=== PATIENT | male | born 1970 | race Hispanic/Latino ===

== ENCOUNTER 2018-04-28 10:35 | Day surgery (SDC) | payer SELFPAY ==
[2018-04-24 14:51] LABS: BASOPHILS % (AUTO) 0.5 % (0.0-5.0); EOSINOPHILS % (AUTO) 1.4 % (0.0-8.0); HEMATOCRIT 44.8 % (42-54); LYMPHOCYTES % (AUTO) 26.7 % (21.0-51.0); MEAN CORPUSCULAR HEMOGLOBIN 31.6 pg (27.0-33.0); MEAN CORPUSCULAR HGB CONC 34.2 g/dL (32.0-36.0); MEAN CORPUSCULAR VOLUME 92.3 fL (79-99); MONOCYTES % (AUTO) 8.4 % (3.0-13.0); PLATELET COUNT (AUTO) 168 K/uL (130-400); RED BLOOD CELL COUNT(AUTO) 4.86 MIL/uL (4.50-6.20); RED CELL DISTRIBUTION WIDTH 12.7 % (11.0-15.5); WHITE BLOOD COUNT (AUTO) 7.7 K/uL (4.8-10.8)
[2018-04-24 15:12] VITALS: BP 136/69
[2018-04-24 15:13] LABS: APPEARANCE,URINE Clear (CLEAR); BILIRUBIN,URINE Negative (NEGATIVE); COLOR,URINE Yellow (YELLOW); GLUCOSE, URINE (UA) Negative (NEGATIVE); KETONES,URINE Negative (NEGATIVE); LEUKOCYTE ESTERASE ,URINE Negative (NEGATIVE); NITRATE,URINE Negative (NEGATIVE); OCCULT BLOOD,URINE Negative (NEGATIVE); PROTEIN,URINE Negative (NEGATIVE)
--- NOTE | 2018-04-24 15:30 | NUR ---
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
[~2018-04-28] VITALS: Ht 162.6 cm; Wt 101.5 kg
[2018-04-28] VITALS (16 sets, daily range): BP systolic 112–139; BP diastolic 60–96
[~2018-04-28 10:35] MED LIST: LACTATED RINGERS 1000ML 1,000 ML IV SCH
[2018-04-28] MEDS ORDERED: MIDAZOLAM HCL 1 MG/ML 2ML VIAL ONE (12:42)
[2018-04-28] MEDS ORDERED: SUCCINYLCHOLINE 200MG/10ML SYR ONE (12:42)
[2018-04-28] MEDS ORDERED: LIDOCAINE PF 2% 5ML ABBOJECT ONE ×3 (12:42→13:35)
[2018-04-28] MEDS ORDERED: DEXAMETHASONE SOD PHOSPHATE 10MG/ML 1ML VIAL ONE (12:42)
[2018-04-28] MEDS ORDERED: NEOSTIGMINE 5MG/5ML SYR IV ONE (12:43)
[2018-04-28] MEDS ORDERED: PROPOFOL 10 MG/ML 20ML VIAL IV ONE (12:43)
[2018-04-28] MEDS ORDERED: GLYCOPYRROLATE 1 MG/5 ML SYRINGE ONE (12:43)
[2018-04-28] MEDS ORDERED: ROCURONIUM 10MG/1ML SYR 10 MG/ML ML ONE (12:43)
[2018-04-28] MEDS ORDERED: FENTANYL CITRATE PF 50 MCG/1 ML 2ML VIAL ONE ×2 (12:43→13:12)
[2018-04-28] MEDS ORDERED: ONDANSETRON HCL 4 MG/2 ML VIAL ONE (12:43)
[2018-04-28] MEDS ORDERED: BUPIVACAINE/PF 0.25% 30ML VIAL IJ ONE (12:43)
[2018-04-28] MEDS ORDERED: LIDOCAINE HCL 2% JELLY 5 ML ONE (13:33)
[2018-04-28] MEDS ORDERED: LIDOCAINE HCL 4% LTA SOL 4 ML VIAL ONE (13:33)
[2018-04-28] MEDS ORDERED: MEPERIDINE-PF 25 MG/ML SYG ONE (15:18)
[2018-04-28] MEDS ORDERED: KETOROLAC TROMETHAMINE 30MG/ML ONE (15:24)
== END 2018-04-28 17:00 | disposition home or self-care (01) ==
LOC: DAH 10:35 → EDSEX 13:00 → DAH 17:00
PROVIDERS: ATTEND Surgery
DX: K43.6 Other and unspecified ventral hernia with obstruction, without gangrene (principal); E66.01 Morbid (severe) obesity due to excess calories
CPT/HCPCS: 36415; 49561; 49568; 81003; 85025; 88302; A4450; A4452; A4606; A4930; C1781; J0330; J1100; J1885; J2001 ×3; J2175; J2250; J2405; J2704; J2710; J3010 ×2; J3490 ×2; J7120

== ENCOUNTER 2018-05-08 19:08 | Inpatient (IN) | payer OTHER, SELFPAY ==
[2018-05-08 21:24] LABS: BASOPHILS % (AUTO) 0.2 % (0.0-5.0); EOSINOPHILS % (AUTO) 0.4 % (0.0-8.0); HEMATOCRIT 40.8 % (42-54); LYMPHOCYTES % (AUTO) 11.8 % (21.0-51.0); MEAN CORPUSCULAR HEMOGLOBIN 31.5 pg (27.0-33.0); MEAN CORPUSCULAR HGB CONC 34.6 g/dL (32.0-36.0); MEAN CORPUSCULAR VOLUME 90.9 fL (79-99); MONOCYTES % (AUTO) 6.8 % (3.0-13.0); NEUTROPHILS % (AUTO) 80.8 % (40.0-77.0); PLATELET COUNT (AUTO) 241 K/uL (130-400); RED BLOOD CELL COUNT(AUTO) 4.49 MIL/uL (4.50-6.20); RED CELL DISTRIBUTION WIDTH 12.1 % (11.0-15.5); WHITE BLOOD COUNT (AUTO) 12.5 K/uL (4.8-10.8)
[2018-05-08 21:35] LABS: CREATININE 0.8 mg/dL (0.5-1.5); POTASSIUM 4.6 mmol/L (3.5-5.1)
[2018-05-08 21:42] LABS: ALBUMIN 3.5 g/dL (3.5-5.0); BILIRUBIN,TOTAL 0.9 mg/dL (0.2-1.0); TOTAL PROTEIN, SERUM 7.9 g/dL (6.0-8.3)
[2018-05-08] MEDS ORDERED: IOHEXOL-350 75 ML VIAL IV ONE (21:43)
[2018-05-08] MEDS ORDERED: VANCOMYCIN 1GM+NS 250ML 250 ML IV ONE (22:27)
[2018-05-09] MEDS ORDERED: LACTATED RINGERS 1000ML 1,000 ML IV ONE (00:50)
[2018-05-09] MEDS ORDERED: ZOSYN 3.375GM+NS 50ML 50 ML IV ONE ×3 (01:12→16:31)
[2018-05-09 04:18] LABS: APPEARANCE,URINE Clear (CLEAR); BILIRUBIN,URINE Negative (NEGATIVE); COLOR,URINE Yellow (YELLOW); GLUCOSE, URINE (UA) Negative (NEGATIVE); KETONES,URINE Negative (NEGATIVE); LEUKOCYTE ESTERASE ,URINE Negative (NEGATIVE); NITRATE,URINE Negative (NEGATIVE); OCCULT BLOOD,URINE Negative (NEGATIVE); PH,URINE 5.5 (5.0-8.0); PROTEIN,URINE Negative (NEGATIVE); UROBILINOGEN,URINE 0.2 mg/dL (0.2-1.0)
[2018-05-09 05:45] LABS: BASOPHILS % (AUTO) 0.4 % (0.0-5.0); EOSINOPHILS % (AUTO) 0.2 % (0.0-8.0); HEMATOCRIT 35.7 % (42-54); LYMPHOCYTES % (AUTO) 18.4 % (21.0-51.0); MEAN CORPUSCULAR HEMOGLOBIN 31.6 pg (27.0-33.0); MEAN CORPUSCULAR HGB CONC 34.8 g/dL (32.0-36.0); MONOCYTES % (AUTO) 7.6 % (3.0-13.0); NEUTROPHILS % (AUTO) 73.4 % (40.0-77.0); PLATELET COUNT (AUTO) 218 K/uL (130-400); RED BLOOD CELL COUNT(AUTO) 3.92 MIL/uL (4.50-6.20); RED CELL DISTRIBUTION WIDTH 11.9 % (11.0-15.5); WHITE BLOOD COUNT (AUTO) 13.5 K/uL (4.8-10.8)
[2018-05-09 05:52] LABS: CREATININE 0.8 mg/dL (0.5-1.5); POTASSIUM 3.9 mmol/L (3.5-5.1)
[2018-05-09] MEDS ORDERED: MORPHINE SULFATE 2 MG/ML 1ML SYG IVP PRN (06:15)
[2018-05-09] MEDS ORDERED: ONDANSETRON HCL 4 MG/2 ML VIAL IVP PRN (06:15)
[2018-05-09] MEDS: ZOSYN 3.375GM+NS 50ML 50 ML IV SCH ×3 (07:00→22:39)
[2018-05-09] MEDS ORDERED: ACET1TAB25 PO (11:09)
--- NOTE | 2018-05-09 11:13 | NUR ---
states he has been urinating every 2 hours since he had surgery on 04-28-18 for umbilical hernia repair Addendum: 05/09/18 at 1123 by CJ RAMIREZ RN RN Amended: Links added.
--- NOTE | 2018-05-09 15:24 | NUR ---
D/C PLAN KATHIA spoke to pt regarding d/c planning. pt is ind. and lives with spouse. states spouse can assist in care as needed. CM provided pt with community resources packet. Plan to home. CM to f/u Addendum: 05/09/18 at 1525 by TISH WASHINGTON CM Amended: Links added.
[2018-05-09 16:00] VITALS: BP 118/70
--- NOTE | 2018-05-09 16:48 | NUR ---
ER ADMIT PATIENT RECEIVED FROM ER VIA WHEELCHAIR IN STABLE CONDITION. HE HAS BEEN ORIENTED TO ROOM AND USE OF CALL LIGHT. CARE PLAN DISCUSSED. BED IS IN LOWEST POSITION AND LOCKED WITH PERSONAL BELONGINGS WITHIN REACH. IV TO LEFT AC IS PATENT INFUSING FLUIDS WITH NO REDNESS OR SWELLING NOTED TO SITE. DRESSING TO ABDOMEN IS SOILED AND WILL BE CHANGED.
[2018-05-09] MEDS: LACTATED RINGERS 1000ML 1,000 ML IV SCH (17:00)
[2018-05-09 19:00] VITALS: BP 152/73
[2018-05-09 23:00] VITALS: BP 125/73
[2018-05-10 03:00] VITALS: BP 107/68
[2018-05-10] MEDS: ZOSYN 3.375GM+NS 50ML 50 ML IV SCH ×3 (06:35→22:44)
[2018-05-10] MEDS: LACTATED RINGERS 1000ML 1,000 ML IV SCH ×2 (07:31→22:44)
[2018-05-10 08:00] VITALS: BP 119/53
[2018-05-10 12:00] VITALS: BP 119/53
[2018-05-10 13:42] LABS: HEMATOCRIT 39.2 % (42-54); MEAN CORPUSCULAR HEMOGLOBIN 31.5 pg (27.0-33.0); MEAN CORPUSCULAR HGB CONC 34.5 g/dL (32.0-36.0); MEAN CORPUSCULAR VOLUME 91.5 fL (79-99); PLATELET COUNT (AUTO) 276 K/uL (130-400); RED BLOOD CELL COUNT(AUTO) 4.29 MIL/uL (4.50-6.20); RED CELL DISTRIBUTION WIDTH 12.3 % (11.0-15.5); WHITE BLOOD COUNT (AUTO) 8.6 K/uL (4.8-10.8)
[2018-05-10 13:44] LABS: CREATININE 0.9 mg/dL (0.5-1.5); POTASSIUM 3.8 mmol/L (3.5-5.1)
--- NOTE | 2018-05-10 15:48 | NUR ---
DRESSING CHANGES DONE , PATIENT DENIES PAIN AT THIS TIME
[2018-05-10 16:00] VITALS: BP 111/76
[2018-05-10 19:00] VITALS: BP 118/97
[2018-05-10 23:00] VITALS: BP 147/83
[2018-05-11 03:00] VITALS: BP 149/70
[2018-05-11] MEDS: ZOSYN 3.375GM+NS 50ML 50 ML IV SCH (06:03)
[2018-05-11 08:00] VITALS: BP 102/52
--- NOTE | 2018-05-11 09:45 | NUR ---
DR. CHOPRA IN TO SEE PT. ORDERS ENTERED. ZOSYN STOPPED AND STARTED ON CLINDAMYCIN. AT THIS TIME ALSO CHANGED DRESSING TO ABD. WOUND. PURULENT DRAINAGE PRESENT AND DR. CHOPRA AWARE.
[2018-05-11] MEDS ORDERED: CLINDAMYCIN 600 MG/D5% WATER 0 ML IV ONE (09:59)
--- NOTE | 2018-05-11 10:00 | NUR ---
WALKING IN HALLWAY WITH SPOUSE AT BEDSIDE. DENIES PAIN AT THIS TIME.
[2018-05-11] MEDS: CLINDAMYCIN 300 MG/D5W 50 ML 50 ML IV SCH ×3 (10:27→21:23)
[2018-05-11] MEDS ORDERED: CLINDAMYCIN 600 MG/D5% WATER 50 ML IV ONE (10:31)
[2018-05-11] MEDS ORDERED: CLINDAMYCIN 600 MG/D5% WATER 50 ML IV SCH (11:15)
[2018-05-11 12:00] VITALS: BP 147/80
--- NOTE | 2018-05-11 14:00 | NUR ---
ABD. DRESSING CHANGED, PURULENT DRAINAGE OOZING AND WHEN PRESS AROUND WOUND DRAINS FREELY. STATES IT DOES NOT HURT.
[2018-05-11 16:00] VITALS: BP 121/76
[2018-05-11] MEDS: LACTATED RINGERS 1000ML 1,000 ML IV SCH (17:23)
[2018-05-11 20:00] VITALS: BP 121/70
[2018-05-12] VITALS: BP 102/49
[2018-05-12] MEDS: CLINDAMYCIN 300 MG/D5W 50 ML 50 ML IV SCH (03:45)
[2018-05-12 04:00] VITALS: BP 106/47
[2018-05-12] MEDS: LACTATED RINGERS 1000ML 1,000 ML IV SCH (04:08)
[2018-05-12 08:00] VITALS: BP 144/80
--- NOTE | 2018-05-12 09:30 | NUR ---
DRESSING TO ABD WOUND CHANGED,DRAINING LESS TODAY. DENIES PAIN.
[2018-05-12] MEDS ORDERED: CLIN300C9 PO (10:46)
--- NOTE | 2018-05-12 11:23 | NUR ---
IN TO SEE PT. LEFT DISCHARGED ORDERS. WILL SEE HIM IN OFFICE TOMORROW.LEFT RX. FOR CLINDAMYCIN AND [facility] OFFICE IN AM.
[2018-05-12 12:00] VITALS: BP 130/75
--- NOTE | 2018-05-12 13:00 | NUR ---
DISCHARGED NOW USING TEACH BACK. RX. IN HAND FOR CLINDAMYCIN PLUS APPT TO FOLLOW UP WITH DR. CHOPRA. INST. ON WOUND CARE GIVEN TO SPOUSE. UNDERSTANDING VERBALIZED ON ALL INST. GIVEN.
== END 2018-05-12 13:11 | disposition home or self-care (01) | DRG 863 ==
LOC: EDH 19:08 → OBSVTOIN 19:09 → EDHIP 19:09 → 3AH 05-09 16:52 → 3BH 05-10 20:52
PROVIDERS: ADMIT Surgery; ATTEND Surgery
DX: T81.49XA Infection following a procedure, other surgical site, initial encounter (principal); B95.62 Methicillin resistant Staphylococcus aureus infection as the cause of diseases classified elsewhere; Y83.8 Other surgical procedures as the cause of abnormal reaction of the patient, or of later complication, without mention of misadventure at the time of the procedure; Y92.89 Other specified places as the place of occurrence of the external cause
CPT/HCPCS: 36415; 74177; 80048; 80053; 81003; 83605; 85025; 85027; 87070; 87076; 87077; 87186; G0378; J2543; J3370; J3490; J7120; Q9967

== ENCOUNTER 2019-04-10 10:06 | Inpatient (IN) | payer OTHER, SELFPAY ==
[~2019-04-10] VITALS: Ht 165.1 cm; Wt 99.4 kg
[~2019-04-10 10:06] MED LIST changes: +ACET1TAB25 PO; +CLIN300C9 PO; -LACTATED RINGERS 1000ML 1,000 ML IV SCH
[2019-04-10] MEDS ORDERED: KETOROLAC TROMETHAMINE 30MG/ML ONE (10:29)
[2019-04-10] MEDS ORDERED: SODIUM CHLORIDE 0.9% 1000ML 1,000 ML IV ONE ×2 (10:30→11:59)
[2019-04-10 10:36] LABS: BASOPHILS % (AUTO) 0.4 % (0.0-5.0); EOSINOPHILS % (AUTO) 0.4 % (0.0-8.0); HEMATOCRIT 40.4 % (42-54); LYMPHOCYTES % (AUTO) 19.8 % (21.0-51.0); MEAN CORPUSCULAR HEMOGLOBIN 30.5 pg (27.0-33.0); MEAN CORPUSCULAR HGB CONC 34.4 g/dL (32.0-36.0); MEAN CORPUSCULAR VOLUME 88.6 fL (79-99); MONOCYTES % (AUTO) 6.4 % (3.0-13.0); NEUTROPHILS % (AUTO) 72.9 % (40.0-77.0); PLATELET COUNT (AUTO) 230 K/uL (130-400); RED BLOOD CELL COUNT(AUTO) 4.56 MIL/uL (4.50-6.20); RED CELL DISTRIBUTION WIDTH 11.8 % (11.0-15.5); WHITE BLOOD COUNT (AUTO) 7.8 K/uL (4.8-10.8)
[2019-04-10 10:46] LABS: POTASSIUM 4.1 mmol/L (3.5-5.1)
[2019-04-10 10:48] LABS: INR 0.97 (0.85-1.15); PARTIAL THROMBOPLASTIN TIME 29.3 SEC (26.3-35.5); PROTHROMBIN TIME 10.2 SEC (9.6-11.6)
[2019-04-10 10:51] LABS: ALBUMIN 3.9 g/dL (3.5-5.0); BILIRUBIN,TOTAL 1.2 mg/dL (0.2-1.0); TOTAL PROTEIN, SERUM 7.8 g/dL (6.0-8.3)
[2019-04-10] MEDS ORDERED: VANCOMYCIN 1GM+NS 250ML 250 ML IV ONE (11:59)
[2019-04-10] MEDS ORDERED: IOHEXOL-350 75 ML VIAL IV ONE (12:42)
[2019-04-10] MEDS ORDERED: ONDANSETRON HCL 4 MG/2 ML VIAL IV PRN (15:45)
[2019-04-10] MEDS ORDERED: MORPHINE SULFATE 2 MG/ML 1ML SYG IV PRN (15:45)
[2019-04-10] MEDS ORDERED: ACETAMINOPHEN 325 MG TAB PO PRN ×2 (15:45)
[2019-04-10 16:27] LABS: ALBUMIN 3.3 g/dL (3.5-5.0); BILIRUBIN,TOTAL 1.2 mg/dL (0.2-1.0); CREATININE 0.8 mg/dL (0.5-1.5); POTASSIUM 3.6 mmol/L (3.5-5.1); TOTAL PROTEIN, SERUM 6.9 g/dL (6.0-8.3)
--- NOTE | 2019-04-10 17:30 | NUR ---
Rec'd to floor via bed after report from Dawn RN- pt. a/ox 4, skin warm and dry with orly umbilical redness along healed incision line. Resp even and unlabored, abdomen round, firm. UAL and self care, no acute complaints at this time.
[2019-04-10 17:46] VITALS: BP 131/74
--- NOTE | 2019-04-10 18:09 | NUR ---
Consult by Dr. Dubose completed; no orders at this time.
[2019-04-10 20:02] VITALS: BP 131/71
[2019-04-10] MEDS: CLINDAMYCIN 600 MG/D5% WATER 50 ML IV SCH ×2 (21:57→23:38)
[2019-04-10] MEDS: SODIUM CHLORIDE 0.9% 1000ML 1,000 ML IV SCH (21:58)
[2019-04-10 23:55] VITALS: BP 122/72
[2019-04-11 04:34] VITALS: BP 116/76
[2019-04-11 05:53] LABS: BASOPHILS % (AUTO) 0.3 % (0.0-5.0); EOSINOPHILS % (AUTO) 2.8 % (0.0-8.0); HEMATOCRIT 38.5 % (42-54); LYMPHOCYTES % (AUTO) 34.2 % (21.0-51.0); MEAN CORPUSCULAR HEMOGLOBIN 30.5 pg (27.0-33.0); MEAN CORPUSCULAR HGB CONC 34.3 g/dL (32.0-36.0); MEAN CORPUSCULAR VOLUME 88.9 fL (79-99); MONOCYTES % (AUTO) 10.9 % (3.0-13.0); NEUTROPHILS % (AUTO) 51.5 % (40.0-77.0); PLATELET COUNT (AUTO) 211 K/uL (130-400); RED BLOOD CELL COUNT(AUTO) 4.33 MIL/uL (4.50-6.20); RED CELL DISTRIBUTION WIDTH 11.7 % (11.0-15.5); WHITE BLOOD COUNT (AUTO) 6.2 K/uL (4.8-10.8)
[2019-04-11 08:07] VITALS: BP 121/68
[2019-04-11] MEDS: SODIUM CHLORIDE 0.9% 1000ML 1,000 ML IV SCH ×2 (09:22→22:23)
[2019-04-11] MEDS: CLINDAMYCIN 600 MG/D5% WATER 50 ML IV SCH ×3 (09:22→22:23)
[2019-04-11 11:44] VITALS: BP 105/59
--- NOTE | 2019-04-11 13:23 | NUR ---
INITIAL Patient lives with spouse, Maggie Torres, [phone] and their 17 year old son and 20 year old daughter. No home services or DME. Patient is independent and drives. 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 No PCP. Pharmacy is [facility] in [place]. DCP is home. Patient has no insurance or benefits. He is a [place] citizen and has worked in the [place]. Patient was provided with community resources for post hospitalization follow up. Patient was also provided with Good RX card for prescriptions and educated on [facility] $4 medication program and [facility] $5 medication program. Patient is being assisted by [employer] for financial matters. Addendum: 04/11/19 at 1326 by REINALDO ROLLINS SS Amended: Links added.
[2019-04-11 16:33] VITALS: BP 119/80
[2019-04-11 20:00] VITALS: BP 138/79
[2019-04-12] VITALS: BP 126/83
[2019-04-12 03:58] VITALS: BP 123/71
[2019-04-12 05:34] LABS: BASOPHILS % (AUTO) 0.5 % (0.0-5.0); EOSINOPHILS % (AUTO) 4.2 % (0.0-8.0); HEMATOCRIT 39.8 % (42-54); LYMPHOCYTES % (AUTO) 40.3 % (21.0-51.0); MEAN CORPUSCULAR HEMOGLOBIN 30.5 pg (27.0-33.0); MEAN CORPUSCULAR HGB CONC 34.4 g/dL (32.0-36.0); MEAN CORPUSCULAR VOLUME 88.6 fL (79-99); MONOCYTES % (AUTO) 12.9 % (3.0-13.0); NEUTROPHILS % (AUTO) 41.7 % (40.0-77.0); PLATELET COUNT (AUTO) 221 K/uL (130-400); RED BLOOD CELL COUNT(AUTO) 4.49 MIL/uL (4.50-6.20); RED CELL DISTRIBUTION WIDTH 11.9 % (11.0-15.5); WHITE BLOOD COUNT (AUTO) 5.7 K/uL (4.8-10.8)
[2019-04-12 05:59] LABS: ALBUMIN 3.2 g/dL (3.5-5.0); BILIRUBIN,TOTAL 0.4 mg/dL (0.2-1.0); CRP QUANTITATIVE 20.4 mg/L (0.00-9.0); POTASSIUM 4.2 mmol/L (3.5-5.1); TOTAL PROTEIN, SERUM 6.9 g/dL (6.0-8.3)
[2019-04-12 08:00] VITALS: BP 135/77
[2019-04-12] MEDS: CLINDAMYCIN 600 MG/D5% WATER 50 ML IV SCH ×2 (08:15→17:53)
[2019-04-12] MEDS: SODIUM CHLORIDE 0.9% 1000ML 1,000 ML IV SCH ×2 (08:17→17:54)
[2019-04-12] MEDS ORDERED: LIDOCAINE HCL MPF 1% 5ML VIAL ONE (09:51)
--- NOTE | 2019-04-12 10:20 | NUR ---
DR. GONZALEZ DID THE BEDSIDE INCISION AND DRAINAGE TO HIS MID ABD WOUND, AND PREP MEDICATION OF MORPHINE 2 MG IV GIVEN FOR PAIN , . PACKED WITH THE 1/4 IODOFORM GAUZE , AND APPLY ON TOP OF THE WOUND STERILE GAUZE AND A ABD PAD AND SECURE WITH TAPE TOLERATE WELL. EDUCATION PROVIDE TO AT THE BEDSIDE,
[2019-04-12 12:00] VITALS: BP 107/81
[2019-04-12 15:35] VITALS: BP 136/77
--- NOTE | 2019-04-12 15:50 | NUR ---
[facility] consult Patient has been seen by Dr. Dubose and I&D was performed. Wound care orders submitted by Dr. Dubose. No [facility] recommendations required at this time. May reconsult as needed.
[2019-04-12 19:55] VITALS: BP 126/72
[2019-04-13] MEDS: CLINDAMYCIN 600 MG/D5% WATER 50 ML IV SCH ×4 (00:09→23:44)
[2019-04-13 00:52] VITALS: BP 108/65
[2019-04-13] MEDS: SODIUM CHLORIDE 0.9% 1000ML 1,000 ML IV SCH ×2 (02:50→14:06)
[2019-04-13 04:07] VITALS: BP 119/63
[2019-04-13 05:37] LABS: BASOPHILS % (AUTO) 0.5 % (0.0-5.0); EOSINOPHILS % (AUTO) 4.5 % (0.0-8.0); LYMPHOCYTES % (AUTO) 39.6 % (21.0-51.0); MEAN CORPUSCULAR HEMOGLOBIN 30.2 pg (27.0-33.0); MEAN CORPUSCULAR HGB CONC 34.3 g/dL (32.0-36.0); MEAN CORPUSCULAR VOLUME 88.3 fL (79-99); MONOCYTES % (AUTO) 10.3 % (3.0-13.0); NEUTROPHILS % (AUTO) 44.9 % (40.0-77.0); PLATELET COUNT (AUTO) 233 K/uL (130-400); RED BLOOD CELL COUNT(AUTO) 4.53 MIL/uL (4.50-6.20); RED CELL DISTRIBUTION WIDTH 11.8 % (11.0-15.5); WHITE BLOOD COUNT (AUTO) 5.5 K/uL (4.8-10.8)
[2019-04-13 06:01] LABS: ALBUMIN 3.2 g/dL (3.5-5.0); BILIRUBIN,TOTAL 0.4 mg/dL (0.2-1.0); CREATININE 0.9 mg/dL (0.5-1.5); CRP QUANTITATIVE 11.6 mg/L (0.00-9.0); POTASSIUM 3.7 mmol/L (3.5-5.1); TOTAL PROTEIN, SERUM 6.7 g/dL (6.0-8.3)
[2019-04-13 08:00] VITALS: BP 90/48
[2019-04-13 12:00] VITALS: BP 125/80
[2019-04-13 16:00] VITALS: BP 132/56
[2019-04-13 21:24] VITALS: BP 122/70
[2019-04-14 00:50] VITALS: BP 96/65
[2019-04-14 04:16] VITALS: BP 125/71
[2019-04-14 05:26] LABS: BASOPHILS % (AUTO) 0.6 % (0.0-5.0); EOSINOPHILS % (AUTO) 3.7 % (0.0-8.0); HEMATOCRIT 40.5 % (42-54); LYMPHOCYTES % (AUTO) 38.7 % (21.0-51.0); MEAN CORPUSCULAR HEMOGLOBIN 30.1 pg (27.0-33.0); MEAN CORPUSCULAR HGB CONC 34.1 g/dL (32.0-36.0); MEAN CORPUSCULAR VOLUME 88.4 fL (79-99); MONOCYTES % (AUTO) 9.9 % (3.0-13.0); NEUTROPHILS % (AUTO) 46.8 % (40.0-77.0); PLATELET COUNT (AUTO) 223 K/uL (130-400); RED BLOOD CELL COUNT(AUTO) 4.58 MIL/uL (4.50-6.20); RED CELL DISTRIBUTION WIDTH 11.8 % (11.0-15.5); WHITE BLOOD COUNT (AUTO) 6.8 K/uL (4.8-10.8)
[2019-04-14 05:54] LABS: ALBUMIN 3.2 g/dL (3.5-5.0); BILIRUBIN,TOTAL 0.4 mg/dL (0.2-1.0); CRP QUANTITATIVE 5.4 mg/L (0.00-9.0); POTASSIUM 3.9 mmol/L (3.5-5.1); TOTAL PROTEIN, SERUM 6.6 g/dL (6.0-8.3)
[2019-04-14 08:00] VITALS: BP 116/78
[2019-04-14] MEDS: SODIUM CHLORIDE 0.9% 1000ML 1,000 ML IV SCH ×2 (09:43→23:50)
[2019-04-14] MEDS: CLINDAMYCIN 600 MG/D5% WATER 50 ML IV SCH ×3 (11:43→23:50)
[2019-04-14 12:00] VITALS: BP 135/87
--- NOTE | 2019-04-14 13:00 | NUR ---
DRESSING CHANGE/ TEACHING PERFORMED ABDOMINAL DRESSING CHANGE WITH PATIENTS PRESENT. PATIENTS STATES SHE WOULD BE ABLE TO PERFORM DRESSING CHANGES IF NEEDED. I ASKED PATIENTS I COULD TEACH HER HOW TO PERFORM ABDOMINAL WOUND DRESSING CHANGES AND PATIENTS AGREED. I ASKED IF SHE WANTED TO PERFORM THE DRESSING CHANGE NOW AND I WOULD INSTRUCT HER AND PATIENTS STATED "NO, I WANT TO JUST WATCH YOU DO THE DRESSING CHANGE FIRST." PERFORMED ABDOMINAL WOUND GAUZE PACKING DRESSING CHANGE. ABDOMINAL WOUND BED PINK AND BEEFY RED, MINIMAL SEROSANGUINEOUS DRAINAGE NOTED. CLEANSED WITH NS, AND PATTED DRY. APPLIED WOUND PACKING, COVERED WITH 4X4 GAUZE AND SECURED WITH MEDIPORE TAPE. I WAS VERBALLY INSTRUCTING PATIENT AND STEP BY STEP. I ASKED PATIENTS IF SHE THINKS SHE COULD PERFORM DRESSING CHANGE NEXT TIME FOR PRACTICE AND PATIENTS REPLIED "YES."
[2019-04-14 16:00] VITALS: BP 134/74
[2019-04-14 20:00] VITALS: BP 127/74
[2019-04-15] VITALS: BP 126/71
[2019-04-15 04:00] VITALS: BP 103/69
[2019-04-15 05:15] LABS: BASOPHILS % (AUTO) 0.5 % (0.0-5.0); EOSINOPHILS % (AUTO) 3.9 % (0.0-8.0); HEMATOCRIT 40.7 % (42-54); LYMPHOCYTES % (AUTO) 39.6 % (21.0-51.0); MEAN CORPUSCULAR HEMOGLOBIN 30.4 pg (27.0-33.0); MEAN CORPUSCULAR HGB CONC 34.4 g/dL (32.0-36.0); MEAN CORPUSCULAR VOLUME 88.5 fL (79-99); MONOCYTES % (AUTO) 10.9 % (3.0-13.0); NEUTROPHILS % (AUTO) 44.6 % (40.0-77.0); PLATELET COUNT (AUTO) 218 K/uL (130-400); RED CELL DISTRIBUTION WIDTH 11.9 % (11.0-15.5); WHITE BLOOD COUNT (AUTO) 6.2 K/uL (4.8-10.8)
[2019-04-15] MEDS: SODIUM CHLORIDE 0.9% 1000ML 1,000 ML IV SCH (05:43)
[2019-04-15 08:25] VITALS: BP 143/61
--- NOTE | 2019-04-15 10:17 | NUR ---
CM NOTE ATTEMPTED TO CALL KARLA ROBLES FOR DR. GONZALEZ, NO ANSWER. VM LEFT REGARDING DISCHARGE PLAN. PER DR. GOODSON, FOLLOW UP WITH DR. CARROLL FOR SURGERY RECOMMENDATIONS. WILL FOLLOW UP ACCORDINGLY.
[2019-04-15] MEDS: CLINDAMYCIN 600 MG/D5% WATER 50 ML IV SCH ×2 (11:53→15:45)
[2019-04-15 12:17] VITALS: BP 123/71
--- NOTE | 2019-04-15 13:15 | NUR ---
DISCHARGE PLAN INFORMED PATIENT OF DISCHARGE PLAN FOR TODAY. PATIENT VERBALIZES AGREEMENT, BUT PATIENTS IS NOT PRESENT AT THIS TIME TO RECEIVE WOUND DRESSING TEACHING. PATIENT REPORTS THAT HIS IS RUNNING ERRANDS AND SHOULD RETURN TO HOSPITAL SOON IN ORDER TO RECEIVE WOUND DRESSING TEACHING.
--- NOTE | 2019-04-15 16:15 | NUR ---
DRESSING CHANGE TEACHING PATIENTS ARRIVED TO FLOOR AT THIS TIME. REVIEWED ABDOMINAL WOUND PACKING DRESSING INSTRUCTIONS THAT I HAD DEMONSTRATED YESTERDAY. PATIENTS STATED SHE WAS READY TO PRACTICE ABDOMINAL WOUND DRESSING CHANGE ON HER OWN. PATIENTS ABLE TO SUCCESSFULLY PERFORM RETURN DEMONSTRATION ON ABDOMINAL DRESSING CHANGE.
== END 2019-04-15 17:30 | disposition home or self-care (01) | DRG 854 ==
LOC: EDH 10:06 → 3BH 10:07
PROVIDERS: ADMIT Family Medicine; ATTEND Family Medicine
PROC: 0WBF0ZZ Excision of Abdominal Wall, Open Approach (ICD-10-PCS; principal; 2019-04-12)
DX: A41.9 Sepsis, unspecified organism (principal); L03.311 Cellulitis of abdominal wall; L02.211 Cutaneous abscess of abdominal wall; E66.01 Morbid (severe) obesity due to excess calories; Z68.36 Body mass index [BMI] 36.0-36.9, adult; E11.9 Type 2 diabetes mellitus without complications; Z86.14 Personal history of Methicillin resistant Staphylococcus aureus infection; Z82.3 Family history of stroke; Z82.49 Family history of ischemic heart disease and other diseases of the circulatory system; Z83.3 Family history of diabetes mellitus; Z82.5 Family history of asthma and other chronic lower respiratory diseases
CPT/HCPCS: 36415; 71045; 74177; 76705; 80053; 83605; 84145; 85025; 85610; 85730; 86140; 87040; 87070; 87076; G0378; J1885; J2405; J3370; J3490; J7030; Q9967